=== PATIENT | female | born 1980 | race Caucasian/White ===

== ENCOUNTER 2021-09-12 17:06 | Emergency (ER) | payer OTHER ==
[~2021-09-12] VITALS: Ht 149.9 cm; Wt 56.7 kg
== END 2021-09-12 22:04 | disposition home or self-care (01) ==
LOC: ER 17:06
DX: S00.83XA Contusion of other part of head, initial encounter (principal); S09.93XA Unspecified injury of face, initial encounter; W01.0XXA Fall on same level from slipping, tripping and stumbling without subsequent striking against object, initial encounter; Y92.89 Other specified places as the place of occurrence of the external cause